=== PATIENT | male | born 2000 | race Caucasian/White ===

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

== ENCOUNTER → 2021-02-11 | Outpatient (REF) | LOC: ZLAB.WCH 11:03 | DX: Z01.89 Encounter for other specified special examinations (principal) ==